=== PATIENT | female | born 1960 | race Caucasian/White ===

== ENCOUNTER → 2019-12-23 | Outpatient (CLI) | payer BC | LOC: COL.RAD 07:11 | DX: K76.0 Fatty (change of) liver, not elsewhere classified (principal) ==

== ENCOUNTER → 2021-04-19 | Outpatient (CLI) | payer BC | LOC: COL.RAD 06:46 | DX: R51.9 Headache, unspecified (principal); R90.82 White matter disease, unspecified ==

== ENCOUNTER → 2021-04-24 | Outpatient (CLI) | payer BC | LOC: COL.VAS 08:14 | DX: I10 Essential (primary) hypertension (principal); R10.9 Unspecified abdominal pain ==

== ENCOUNTER → 2021-05-04 | Outpatient (CLI) | payer BC | LOC: COL.RAD 10:27 | DX: Z01.812 Encounter for preprocedural laboratory examination (principal); K76.0 Fatty (change of) liver, not elsewhere classified; I10 Essential (primary) hypertension; I70.1 Atherosclerosis of renal artery | CPT/HCPCS: Q9967 ==

== ENCOUNTER → 2023-06-13 | Outpatient (CLI) | payer BC | LOC: COL.RAD 14:40 | DX: R93.89 Abnormal findings on diagnostic imaging of other specified body structures (principal); N95.0 Postmenopausal bleeding ==